=== PATIENT | female | born 1960 | race Caucasian/White ===

== ENCOUNTER → 2017-06-21 | Day surgery (SDC) | payer BC ==
[~2017-06-21] MED LIST: ASPIRIN PO; BACTRIM DS TABL1 TA1 PO; BYSTOLIC10 MG PO; CADUET 10 MG/201 TAB PO; DICLOFENAC PO; FIORICET 50-321 EACH PO; GLIMEPIRIDE1 MG PO; GLUCOPHAGE500 MG; HYDROCHLOROTHIA25 MG PO; HYZAAR 100-25 T1 TAB PO; IMITREX25 MG PO; JANUVIA PO; KEFLEX500 M1 PO; KLOR-CON PO; LIPITOR40 MG PO; LISINOPRIL PO; LISINOPRIL-HCTZ1 T14 PO; METFORMIN PO; MORPHINE SULFAT30 M3 PO; NORVASC PO; PERCOCET 10/31 UDTA1 PO; PERCOCET5/325 PO; POTASSIUM CHLOR8 ME1 PO; TOPAMAX50 MG PO; TOPROL XL PO; VITAMIN D1000 UNIT PO; VOLTAREN75 MG PO; ZOFRAN PO
--- NOTE | ~2017-06-21 | OR ---
Unit #: [id number] #: [id number] Patient: AYO HOOKS [id number] [address] [place], [place] [address] [id number] O MR#: [id number] NAME: AYO HOOKS ROOM: Date of Procedure: 06/21/2017 Admission Date: 06/21/2017 Surgeon: Jaylen Reed M.D. : 1960 Attending Physician: Jaylen Reed M.D. Primary Care Physician: Juan Pablo Melendrez D.O. OPERATIVE REPORT JOB NOTE: CC: [facility] PREOPERATIVE DIAGNOSES Spinal stenosis, degenerative disk disease, back pain, radiculopathy. POSTOPERATIVE DIAGNOSES Spinal stenosis, degenerative disk disease, back pain, radiculopathy. PROCEDURE PERFORMED Lumbar epidural steroid injection with intravenous sedation and fluoroscopic guidance for needle localization. INDICATIONS FOR PROCEDURE The patient is a 56-year-old female with worsening back and lower extremity pain. She has known severe stenosis at L4-L5 and L5-S1 degenerative change. She is a poor surgical candidate due to morbid obesity. She has failed to settle better with conservative treatment. Recent greater trochanteric injection settle a lot of the hip pain. She is having some back pain with radicular pain that is felt to be due to these disks, so the plan is for trial of epidural steroid injection. Risks and benefits of all which have been reviewed. DESCRIPTION OF PROCEDURE The patient was placed in a seated position. Standard monitors were applied. 2 mg of Versed were given for sedation and anxiolysis, which were adequate. Vital signs remained stable. Sterile prep and drape then of the lumbar area was performed. The skin then at the L4-L5 level was localized with 1% lidocaine. A long 18-gauge eFoldertead needle was then advanced via loss of resistance technique and fluoroscopic guidance in toward the epidural space. After confirming proper positioning with fluoroscopy and radiographic contrast, a dose of 80 mg Depo-Medrol and 4 mL of 0.125% bupivacaine were deposited. The patient tolerated the procedure otherwise well and was discharged to the recovery room in stable condition. Dictated by... Malu RowanP/patricia TD: 06/21/2017 13:09 Unit #: [id number] #: [id number] Patient: AYO HOOKS JOB #: [id number] OPERATIVE REPORT Page 1 of 1 X Jaylen Reed MD X PROCEDURE OPERATIVE NOTE
== END | disposition home or self-care (01) ==
LOC: CCSC 10:14
DX: M51.16 Intervertebral disc disorders with radiculopathy, lumbar region (principal); M48.07 Spinal stenosis, lumbosacral region; G43.909 Migraine, unspecified, not intractable, without status migrainosus; E11.9 Type 2 diabetes mellitus without complications; I10 Essential (primary) hypertension; E66.01 Morbid (severe) obesity due to excess calories; Z88.8 Allergy status to other drugs, medicaments and biological substances; Z79.891 Long term (current) use of opiate analgesic; Z79.899 Other long term (current) drug therapy; Z79.84 Long term (current) use of oral hypoglycemic drugs; Z98.1 Arthrodesis status; Z90.49 Acquired absence of other specified parts of digestive tract; Z90.710 Acquired absence of both cervix and uterus; Z98.890 Other specified postprocedural states
CPT/HCPCS: J1040; J2250

== ENCOUNTER → 2017-07-05 | Day surgery (SDC) | payer BC ==
[~2017-07-05] MED LIST changes: +LISINOPRIL
--- NOTE | ~2017-07-05 | OR ---
Unit #: [id number] #: [id number] Patient: AYO HOOKS [id number] [address] [address] [id number] O MR#: [id number] NAME: AYO HOOKS ROOM: Date of Procedure: 07/05/2017 Admission Date: 07/05/2017 Surgeon: Jaylen Reed M.D. : 1960 Attending Physician: Jaylen Reed M.D. Primary Care Physician: Juan Pablo Melendrez D.O. OPERATIVE REPORT PREOPERATIVE DIAGNOSES Back pain, radiculopathy, degenerative disk disease, spinal stenosis. POSTOPERATIVE DIAGNOSES Back pain, radiculopathy, degenerative disk disease, spinal stenosis. PROCEDURE PERFORMED Lumbar epidural steroid injection with intravenous sedation and fluoroscopic guidance for needle localization. INDICATIONS FOR PROCEDURE The patient is a 56-year-old female with worsening back and bilateral lower extremity pain due to previous mentioned diagnosis. She has failed to settle with conservative treatment, so decision made to give a trial of epidural steroids. Initial injection done 2 weeks ago definitely resulted in improvement of all components of her pain. She has maintained this. The patient has partial though an adequate response, we are going to proceed with a second injection today. DESCRIPTION OF PROCEDURE The patient was placed in a seated position. Standard monitors were applied. 2 mg of Versed were given for sedation and anxiolysis, which were adequate. Vital signs remained stable. Sterile prep and drape then of the lumbar area was performed. The skin then at the L4-L5 level was localized with 1% lidocaine. An 18-gauge Hustead needle was then advanced via loss of resistance technique and fluoroscopic guidance in toward the epidural space. After confirming proper positioning with fluoroscopy and radiographic contrast, 80 mg of Depo-Medrol and 4 mL of 0.125% bupivacaine were deposited. The patient tolerated the procedure otherwise well and was discharged to the recovery room in stable condition. Dictated by... Malu Rowan/patricia TD: 07/05/2017 12:17 JOB #: [id number] Unit #: [id number] #: [id number] Patient: AYO HOOKS OPERATIVE REPORT Page 1 of 1 X Jaylen Reed MD X PROCEDURE OPERATIVE NOTE
== END | disposition home or self-care (01) ==
LOC: CCSC 10:16
DX: M51.16 Intervertebral disc disorders with radiculopathy, lumbar region (principal); M48.06 Spinal stenosis, lumbar region; E11.9 Type 2 diabetes mellitus without complications; I10 Essential (primary) hypertension; G43.909 Migraine, unspecified, not intractable, without status migrainosus; E66.01 Morbid (severe) obesity due to excess calories; Z98.1 Arthrodesis status; Z88.1 Allergy status to other antibiotic agents; Z88.8 Allergy status to other drugs, medicaments and biological substances; Z79.891 Long term (current) use of opiate analgesic; Z79.84 Long term (current) use of oral hypoglycemic drugs; Z79.899 Other long term (current) drug therapy
CPT/HCPCS: J1040; J2250

== ENCOUNTER → 2017-07-26 | Day surgery (SDC) | payer BC ==
--- NOTE | ~2017-07-26 | OR ---
Unit #: [id number] #: [id number] Patient: AYO HOOKS [id number] [address] [place], [place] [address] [id number] O MR#: [id number] NAME: AYO HOOKS ROOM: Date of Procedure: 07/26/2017 Admission Date: 07/26/2017 Surgeon: Jaylen Reed M.D. : 1960 Attending Physician: Jaylen Reed M.D. Referring Physician: Jaylen Reed M.D. Primary Care Physician: Juan Pablo Melendrez D.O. OPERATIVE REPORT PREOPERATIVE DIAGNOSES Back pain, radiculopathy, degenerative disk disease, spinal stenosis. POSTOPERATIVE DIAGNOSES Back pain, radiculopathy, degenerative disk disease, spinal stenosis. PROCEDURE PERFORMED Lumbar epidural steroid injection with intravenous sedation and fluoroscopic guidance for needle localization. INDICATIONS FOR PROCEDURE The patient is a 56-year-old female with worsening back and bilateral lower extremity pain, which did not settle with conservative treatment. Workup demonstrates severe stenosis at L4-L5 and L5-S1. Based on history, pathology, symptomatology, and treatment options, decision was made to give the patient a trial of epidural steroid treatment at this point. The first a bit over a month ago resulted in mild improvement of her symptomatology at best. Second injection done 3 weeks ago resulted in greater than 50% settling of her symptoms, she is able to walk more, is much more active, and in fact, has been doing her ADLs. Based on this good additive response, her pathology, and continued symptomatology, we are going to proceed with the final injection today and then follow the patient back at the pain center. DESCRIPTION OF PROCEDURE The patient was placed in a seated position. Standard monitors were applied. 2 mg of Versed were given for sedation and anxiolysis, which were adequate. Vital signs remained stable. Sterile prep and drape then of the lumbar area were performed. The skin at the L4-L5 level was localized with 1% lidocaine. An 18-gauge Apsetead needle was then advanced via loss of resistance technique under fluoroscopic guidance in toward the epidural space. After confirming proper positioning with fluoroscopy and radiographic contrast, 80 mg of Depo-Medrol and 4 mL of 0.125% bupivacaine were deposited. The patient tolerated the procedure well and was discharged to the recovery room in stable condition. Dictated by... Jaylen Reed M.D. [facility] Unit #: [id number] #: [id number] Patient: AYO HOOKS TD: 07/27/2017 08:57 JOB #: [id number] OPERATIVE REPORT Page 1 of 1 X Jaylen Reed MD X PROCEDURE OPERATIVE NOTE
== END | disposition home or self-care (01) ==
LOC: CCSC 10:20
DX: M51.16 Intervertebral disc disorders with radiculopathy, lumbar region (principal); M48.06 Spinal stenosis, lumbar region; M48.07 Spinal stenosis, lumbosacral region; G43.909 Migraine, unspecified, not intractable, without status migrainosus; E11.9 Type 2 diabetes mellitus without complications; I10 Essential (primary) hypertension; E66.01 Morbid (severe) obesity due to excess calories; Z88.8 Allergy status to other drugs, medicaments and biological substances; Z79.84 Long term (current) use of oral hypoglycemic drugs; Z79.899 Other long term (current) drug therapy; Z98.1 Arthrodesis status
CPT/HCPCS: 82947; J1040; J2250